=== PATIENT | female | born 1995 | race Caucasian/White ===

== ENCOUNTER → 2020-01-11 10:15 | Outpatient (CLI) | payer OTHER, SELFPAY ==
--- NOTE | ~2020-01-11 | US_ITS ---
US OB >= 14 weeks Fetus DATE: 01/11/2020 11:01 INDICATION: anatomy screen TECHNIQUE: Real-time imaging and Doppler analysis COMPARISON: None FINDINGS: The fetus is in transverse lie, breech presentation. Anterior placenta. Lower placental margin is 6.6 cm above the internal os. No retroplacental abnormal fluid collection. Subjectively normal amount of amniotic fluid. No cerebral ventriculomegaly. The cerebellum appears normal. Normal cerebellum and nuchal fold. The spine appears unremarkable on transverse views. heart rate of 161 bpm. 4 chamber heart. Outflow tracts are not optimally demonstrated. There is evidence of a 2 vessel umbilical cord. The extremities are demonstrated. Biparietal diameter: 4.32 cm; 19 weeks estimated gestational age Head circumference 16.16 cm; 19 weeks Abdominal circumference 14.15 cm; 19 weeks 4 days Femur length 3.01 cm; 19 weeks 2 days Composite age by Hadlock formula is 19 weeks 2 days +/- 1 week 2 days; MARY LOU by ultrasound is 06/04/2020. Estimated weight is 288 +/- 43 grams IMPRESSION: Probable two-vessel umbilical cord Composite age by Hadlock formula is 19 weeks 2 days +/- 1 week 2 days; MARY LOU by ultrasound is 06/04/2020. Estimated weight is 288 +/- 43 grams Reviewed, dictated and finalized at [facility]. Reviewed, dictated and finalized at [facility]. IMPRESSION: Probable two-vessel umbilical cord Composite age by Hadlock formula is 19 weeks 2 days +/- 1 week 2 days; MARY LOU by u ltrasound is 06/04/2020. Estimated weight is 288 +/- 43 grams
== END ==
PROVIDERS: Visit Provider Obstetrics & Gynecology
DX: Z36.9 Encounter for antenatal screening, unspecified (principal); Z3A.19 19 weeks gestation of pregnancy
CPT/HCPCS: 76805